=== PATIENT | female | born 1960 | race Caucasian/White ===

== ENCOUNTER 2023-06-10 21:21 | Emergency (ER) | payer MEDICARE ==
[2023-06-10 21:47] VITALS: RESP 18; TEMP 98.9
--- NOTE | 2023-06-10 23:52 | ED ---
General Adult HPI - General Chief complaint: Extremity Injury, Lower Stated complaint: Fall-right knee pain Time Seen by Provider: 06/10/23 21:55 Source: patient, RN notes reviewed Mode of arrival: ambulatory Limitations: no limitations - History of Present Illness Initial comments: 62-year-old female presents to the emergency department chief complaint of right knee pain. She states that earlier today her dog leash wrapped around her leg causing her to fall on her right knee. She reports that she has been unable to bear weight on her right leg. Patient has a history of sensory neuronopathy and has had no change in her lower extremity sensation. No known medication allergies. - Related Data Allergies Allergy/AdvReac Type Severity Reaction Status Date / Time No Known Allergies Allergy Verified 06/10/23 21:47 Review of Systems ROS Statement: Those systems with pertinent positive or pertinent negative responses have been documented in the HPI. ROS Other: All systems not noted in ROS Statement are negative. Past Medical History Past Medical History: GERD/Reflux, Hypertension Additional Past Medical History / Comment(s): auto-immune issues. sensory neuronopathy History of Any Multi-Drug Resistant Organisms: None Reported Past Surgical History: Hysterectomy Past Psychological History: No Psychological Hx Reported Smoking Status: Never smoker Past Alcohol Use History: Occasional Past Drug Use History: Marijuana General Exam Limitations: no limitations General appearance: alert, in no apparent distress Head exam: Present: atraumatic, normocephalic, normal inspection Eye exam: Present: normal appearance, PERRL, EOMI. Absent: scleral icterus, conjunctival injection, periorbital swelling ENT exam: Present: normal exam, mucous membranes moist Neck exam: Present: normal inspection. Absent: tenderness, meningismus, lymphadenopathy Respiratory exam: Present: normal lung sounds bilaterally. Absent: respiratory distress, wheezes, rales, rhonchi, stridor Cardiovascular Exam: Present: regular rate, normal rhythm, normal heart sounds. Absent: systolic murmur, diastolic murmur, rubs, gallop, clicks Extremities exam: Present: tenderness (Patella, proximal tibia), normal capillary refill, other (DP and PT pulses 2+, swelling right knee). Absent: full ROM, pedal edema, calf tenderness Back exam: Present: normal inspection Neurological exam: Present: alert, oriented X3 Psychiatric exam: Present: normal affect, normal mood Skin exam: Present: warm, dry, normal color, abrasion (right knee). Absent: rash Course Vital Signs 06/10/23 21:44 Temperature 98.9 F Pulse Rate 89 Respiratory 18 Rate Blood Pressure 155/79 O2 Sat by Pulse 99 Oximetry Medical Decision Making - Medical Decision Making Was pt. sent in by a medical professional or institution (, PARKER, OCCUPATIONAL THERAPY TECHNICIAN, urgent care, hospital, or intermediate...) When possible be specific @ -No Did you speak to anyone other than the patient for history (EMS, parent, family, police, friend...)? What history was obtained from this source @ -No Did you review nursing and triage notes (agree or disagree)? Why? @ -I reviewed and agree with nursing and triage notes Were old charts reviewed (outside hosp., previous admission, EMS record, old EKG, old radiological studies, urgent care reports/EKG's, intermediate records)? Report findings @ -No old charts were reviewed Differential Diagnosis (chest pain, altered mental status, abdominal pain women, abdominal pain men, vaginal bleeding, weakness, fever, dyspnea, syncope, headache, dizziness, GI bleed, back pain, seizure, CVA, palpatations, mental health, musculoskeletal)? @ -Differential Musculoskeletal Muscular strain, contusion, ligament sprain, fracture, arthritis, septic arthritis, bursitis, cellulitis, muscle spasm, nerve compression, DVT, arterial occlusion, herpes zoster, electrolyte abnormality, tumor.... This is not meant to be in all inclusive list EKG interpreted by me (3pts min.). @ -None X-rays interpreted by me (1pt min.). @ -X-ray right knee shows transverse patellar fracture, tibial plateau fracture CT interpreted by me (1pt min.). @ -CT right leg shows patellar fracture, tibial plateau fracture U/S interpreted by me (1pt. min.). @ -None done What testing was considered but not performed or refused? (CT, X-rays, U/S, labs)? Why? @ -None What meds were considered but not given or refused? Why? @ -None Did you discuss the management of the patient with other professionals (professionals i.e. PARKER Mcneill, OCCUPATIONAL THERAPY TECHNICIAN, lab, RT, psych nurse, geriatric social worker, computer applications engineer, teacher, cash management officer, case maker)? Give summary @ -Management discussed with Dr. Rosales who recommends a CT scan. He states that if the CT shows nondisplaced fractures, the she can be placed in a knee immobilizer and given crutches or walker Was smoking cessation discussed for >3mins.? @ -No Was critical care preformed (if so, how long)? @ -No Were there social determinants of health that impacted care today? How? (Homelessness, low income, unemployed, alcoholism, drug addiction, transportatio n, low edu. Level, literacy, decrease access to med. care, snf, rehab)? @ -No Was there de-escalation of care discussed even if they declined (Discuss DNR or withdrawal of care, Hospice)? DNR status @ -No What co-morbidities impacted this encounter? (DM, HTN, Smoking, COPD, CAD, Cancer, CVA, ARF, Chemo, Hep., AIDS, mental health diagnosis, sleep apnea, morbid obesity)? @ -None Was patient admitted / discharged? Hospital course, mention meds given and route, prescriptions, significant lab abnormalities, going to OR and other pertinent info. @ -Patient presented to emergency department with chief complaint of right knee pain. She states that she fell on her right knee while walking her dog earlier today. She reports that she is unable to bear weight on it. XR obtained shows transverse patellar fracture and tibial plateau fracture. Dr. Rosales contacted who recommended CT scan. CT reviewed by myself and Dr. Mahmood pending CT report. Patient will be placed in a knee immobilizer with follow up to orthopedics given. Patient stable at time of discharge. Case discussed with my attending, Dr. Mahmood. Undiagnosed new problem with uncertain prognosis? @ -No Drug Therapy requiring intensive monitoring for toxicity (Heparin, Nitro, Insulin, Cardizem)? @ -No Were any procedures done? @ -No Diagnosis/symptom? @ -Patellar fracture Acute, or Chronic, or Acute on Chronic? @ -acute Uncomplicated (without systemic symptoms) or Complicated (systemic symptoms)? @ -uncomplicated Side effects of treatment? @ -No Exacerbation, Progression, or Severe Exacerbation? @ -No Poses a threat to life or bodily function? How? (Chest pain, [place], NH, pneumonia, PE, COPD, DKA, ARF, appy, cholecystitis, CVA, Diverticulitis, Homicidal, Suicidal, threat to staff... and all critical care pts) @ -No Diagnosis/symptom? @ -Tibial plateau fracture Acute, or Chronic, or Acute on Chronic? @ -Acute Uncomplicated (without systemic symptoms) or Complicated (systemic symptoms)? @ -uncomplicated Side effects of treatment? @ -none Exacerbation, Progression, or Severe Exacerbation] @ -no Poses a threat to life or bodily function? @ -no Disposition Clinical Impression: Patellar fracture, Tibial plateau fracture, right Disposition: HOME SELF-CARE Condition: Stable Instructions (If sedation given, give patient instructions): Patellar Fracture (ED) Additional Instructions: Please follow up with orthopedics on Tuesday. Return to the emergency department for new or worsening symptoms. Is patient prescribed a controlled substance at d/c from ED?: No Referrals: Kallie Key DO [Primary Care Provider] - 1-2 days Cruzito Rosales MD [STAFF PHYSICIAN] - 1-2 days Time of Disposition: 03:00
[2023-06-11] MEDS ORDERED: IBUPROFEN 600 MG TAB PO STA (00:22)
[2023-06-11] MEDS ORDERED: ACETAMINOPHEN TAB 500 MG TAB PO STA (00:22)
--- NOTE | 2023-06-11 00:32 | XR ---
EXAM: XR Right Knee, 3 Views CLINICAL HISTORY: ITS.REASON XR Reason: fall TECHNIQUE: Three views of the right knee. COMPARISON: No relevant prior studies available. FINDINGS: Bones/joints: Nondepressed tibial plateau fracture extending to the tibial spines. Transverse fracture of the patella. Soft tissues: Soft tissue edema. IMPRESSION: 1. Nondepressed tibial plateau fracture extending to the tibial spines. 2. Transverse fracture of the patella.
--- NOTE | 2023-06-11 02:50 | CT ---
EXAM: CT Right Lower Extremity Without Intravenous Contrast CLINICAL HISTORY: ITS.REASON CT Reason: patellar fractre, tib plat fracture TECHNIQUE: Axial computed tomography images of the right lower extremity without intravenous contrast. CTDI is nondepressed 5.4 mGy and DLP is 298.1 mGy- cm. This CT exam was performed using one or more of the following dose reduction techniques: automated exposure control, adjustment of the mA and/or kV according to patient size, and/or use of iterative reconstruction technique. COMPARISON: No relevant prior studies available. FINDINGS: Bones/joints: Midline tibial plateau fracture involving the tibial spines. Nondisplaced transverse fracture through the patella. Lipohemarthrosis present. The joint spaces are preserved. No other fracture is identified. Normal alignment. Soft tissues: Soft tissue edema most pronounced anteriorly. IMPRESSION: 1. Midline tibial plateau fracture involving the tibial spines. 2. Nondisplaced transverse fracture through the patella.
[2023-06-11 03:45] VITALS: BP 149/80; PULSE 88
== END 2023-06-11 03:45 | disposition home or self-care (01) ==
LOC: EC 21:21
DX: S82.034A Nondisplaced transverse fracture of right patella, initial encounter for closed fracture (principal); S82.141A Displaced bicondylar fracture of right tibia, initial encounter for closed fracture; I10 Essential (primary) hypertension; F12.90 Cannabis use, unspecified, uncomplicated; W18.30XA Fall on same level, unspecified, initial encounter; Y93.K1 Activity, walking an animal
CPT/HCPCS: 99284